=== PATIENT | male | born 1955 | race Asian ===

== ENCOUNTER 2017-09-25 09:54 | Emergency (ER) | payer SELFPAY ==
[~2017-09-25] VITALS: Ht 177.8 cm; Wt 74.1 kg
[2017-09-25 09:59] VITALS: BP 96/56
--- NOTE | 2017-09-25 10:06 | NUR ---
PATIENT PRESENTS TO ED WITH LACERATION OF R INDEX FINGER . PT . DENIES N/V/D; SKIN IS PINK/WARM/DRY; AAOX4 WITH EVEN AND STEADY GAIT; LUNGS CLEAR BL; HR EVEN AND REGULAR; PT DENIES ANY FEVER, CP, SOB, OR COUGH AT THIS TIME; PATIENT STATES PAIN OF 08/10 IN R INDEX FINGER AT THIS TIME; VSS; PATIENT POSITIONED FOR COMFORT; HOB ELEVATED; BEDRAILS UP X2; BED DOWN. ER MD MADE AWARE OF PT STATUS.
--- NOTE | 2017-09-25 10:06 | NUR ---
PT AMBULATED TO BED 11
--- NOTE | 2017-09-25 10:13 | NUR ---
XRAY AT BEDSIDE
--- NOTE | 2017-09-25 10:25 | NUR ---
DR ESTRADA EVALUATING PT AT BEDSIDE
--- NOTE | 2017-09-25 10:25 | NUR ---
Patient being evaluated by Dr. Quintanilla at bedside.
[2017-09-25] MEDS ORDERED: KETOROLAC 60 MG/2 ML VIAL IM ONE (10:30)
[2017-09-25] MEDS ORDERED: MORPHINE SULFATE 50 MG in NACL 0.9% 45 ML IV SCH (10:45)
--- NOTE | 2017-09-25 10:57 | NUR ---
ETA for 20-25 mins for transfer to [facility].
[2017-09-25] MEDS ORDERED: MORPHINE SULFATE 4 MG/ML SYR IVP ONE (11:05)
[2017-09-25] MEDS ORDERED: NACL 0.9% 1,000 ML IV ONE (11:05)
--- NOTE | 2017-09-25 11:06 | NUR ---
Note undone in EDM - 09/25/17 at 1317 by [email or web address] PATIENT PRESENTS TO ED WITH LACERATED RIGHT INDEX FINGER. PT. DENIES N/V/D; SKIN IS PINK/WARM/DRY; AAOX4 WITH EVEN AND STEADY GAIT; LUNGS CLEAR BL; HR EVEN AND REGULAR; PT DENIES ANY FEVER, CP, SOB, OR COUGH AT THIS TIME; PATIENT STATES PAIN OF 8/10 IN HIS RIGHT INDEX FINGER AT THIS TIME; VSS; PATIENT POSITIONED FOR COMFORT; HOB ELEVATED; BEDRAILS UP X2; BED DOWN. ER MADE AWARE OF PT STATUS.
[2017-09-25] MEDS ORDERED: ceFAZolin 1,000 MG VIAL ONE (11:07)
--- NOTE | 2017-09-25 11:49 | NUR ---
PT LEFT WITH [facility] TRANSPORT TO [facility]
[2017-09-25 12:00] VITALS: BP 109/58
--- NOTE | 2017-09-25 12:00 | NUR ---
Patient to be transferred to [facility]. Is being transferred due to HIGHER LEVEL OF CARE. Receiving facility has accepting physician and available space. ER physician has signed transfer form. Patient or responsible republican has agreed to transfer and signed form. Patient belongings inventoried and will be sent with patient. Copy of nursing notes, AND, Physicians Orders and X-rays to be sent with patient. Report calleD TO RN at receiving facility. REPORT GIVEN TO [facility]
== END 2017-09-25 11:49 | disposition short-term general hospital (02) ==
LOC: MED 09:54
DX: S61.210A Laceration without foreign body of right index finger without damage to nail, initial encounter (principal); W31.2XXA Contact with powered woodworking and forming machines, initial encounter; Y93.89 Activity, other specified; Y92.89 Other specified places as the place of occurrence of the external cause; Y99.8 Other external cause status
CPT/HCPCS: 73140; 90471; 90715; 96365; 96375; 99285; J0690; J2270; J7030; J7060; Q0092